=== PATIENT | female | born 1950 | race Caucasian/White ===

== ENCOUNTER 2016-09-08 11:15 | Day surgery (SDC) | payer BC ==
[2016-09-06 08:42] VITALS: BMI 26.6
[~2016-09-08 11:15] MED LIST: LACTATED RINGERS 1,000 ML IV SCH
[2016-09-08] MEDS ORDERED: LIDOCAINE 1% 20 ML VIAL (10MG/ML) FOR IV START SQ ONE (11:51)
[2016-09-08 11:57] VITALS: RESP 16; TEMP 97.1
[2016-09-08] MEDS ORDERED: PROPOFOL 10 MG/ML 20 ML VIAL IV ONE (12:35)
[2016-09-08] MEDS ORDERED: LIDOCAINE 1% INJ 10MG/ML (20 ML MDV) ONE (12:35)
[2016-09-08 13:04] VITALS: PULSE 52
--- NOTE | 2016-09-08 13:04 | P.PCN ---
Date of Procedure: 09/08/16 Procedure(s) Performed: Procedure: Total colonoscopy. Preoperative diagnosis: Screening for neoplasia. Postoperative diagnosis: Exam within normal limits. Preparation: HalfLytely prep. Sedation: Was provided by anesthesia. Brief clinical history: The patient is a 65-year-old female who is referred for this evaluation for nonspecific abdominal symptoms but mostly for screening for neoplasia with age being her risk factor. She had a prior exam more than 10 years ago. No family history of colon cancer. She has no bleeding or anemia. Procedure: With the patient on her left lateral decubitus position and after informed consent and adequate sedation, the perianal area was inspected and it did not show any fissures or fistulas. There were no masses felt on digital rectal examination. The Olympus CFQ 160L video colonoscope was then inserted in the rectum in the usual fashion and advanced to the cecum. The mucosa appeared healthy. No polyps or tumors were seen or any obvious diverticular disease or other pathology. I retroflexed endoscope in the rectum before the endoscope was withdrawn. The patient tolerated the procedure well. Plan: The patient was reassured. Discussed dietary measures. She will follow- up with you as planned and further plans can be made based on her course. I suggested repeat colonoscopy in 10 years.
[2016-09-08 13:22] VITALS: BP 132/76
== END 2016-09-08 13:34 | disposition home or self-care (01) ==
LOC: ORWHC2ENDO 11:15
DX: Z12.11 Encounter for screening for malignant neoplasm of colon (principal)
CPT/HCPCS: G0121; J2001; J2704; 45378; 99153

== ENCOUNTER → 2016-09-21 | Outpatient (CLI) | payer BC ==
--- NOTE | 2016-09-21 16:31 | BD ---
EXAMINATION TYPE: MG DEXA axial skeleton. DATE OF EXAM: 09/21/2016 8:53 AM COMPARISON: NONE CLINICAL HISTORY: 65-year-old female osteoporosis Height: 69 Weight: 190.9 FRAX RISK QUESTIONS: Alcohol (3 or more units per day): YES Family History (Parent hip fracture): NO Glucocorticoids (More than 3mos): NO (Ex: prednisone, prednisolone, methylprednisolone, dexamethasone, and hydrocortisone). History of Fracture in Adulthood: NO Secondary Osteoporosis: 1. Type 1 Diabetes: NO 2. Hyperthyroidism: NO 3. Menopause before 45: NO 4. Malnutrition: NO 5. Chronic liver disease: NO Rheumatoid Arthritis: NO Current Tobacco Use: NO RISK FACTORS HISTORY OF: Hip Fracture (Right/Left): NO Spine Fracture: NO History of Wrist Fracture: NO Surgery to Spine/Hip(right/left)/Wrist (right/left): NO Family History of Osteoporosis: NO Active: NO Diet low in dairy products/other sources of calcium: NO Postmenopausal woman: AGE 52 Lost more than 2 inches in height since high school: NO Frequent falls: NO Adrenal Insufficiency: NO MEDICATIONS: NONE EXAM MEASUREMENTS: Bone mineral densitometry was performed using the [employer] System. Bone mineral density as measured about the Lumbar spine is: ----- L1-L4(G/cm2): 1.002 T Score Values are as follows: ----- L2: -1.3 ----- L3: -1.0 ----- L4: -2.1 ----- L1-L4: -1.5 Bone mineral density has: DECREASED -9.7 % since study of: 07.09.2008 Bone mineral density about the R hip (g/cm2): 1.039 Bone mineral density about the L hip (g/cm2): 0.989 T Score values are as follows: -----R Neck: 0.0 -----L Neck: -0.4 -----R Intertrochanter: -0.2 -----L Intertrochanter: -0.7 Bone mineral density has: DECREASED -2.1 % since study of: 07.09.2008 IMPRESSION: Osteopenia as indicated by T score values in the lumbar spine. There is slightly increased risk for f racture and therapy can be considered. Rescreen in 2-5 years. NOTE: T-SCORE=SD OF THE YOUNG ADULT MEAN.
--- NOTE | 2016-09-22 12:00 | MM ---
Reason for exam: screening (asymptomatic). Last mammogram was performed 1 year and 3 months ago. History: Patient is postmenopausal. Family history of breast cancer in mother at age 68 and breast cancer in maternal aunt at age 60. Benign excisional biopsy of the left breast, 2004. Retro-pectoral silicone gel implants in both breasts, 1980. Benign excisional biopsy of the left breast, 1979. Took hormonal contraceptives for 8 years beginning at age 19. Physical Findings: A clinical breast exam by your physician is recommended on an annual basis and results should be correlated with mammographic findings. MG Screening Mammo Implant/CAD Bilateral CC, MLO, and ID view(s) were taken. Prior study comparison: June 09, 2015, bilateral MG screening mammo implant/CAD. May 14, 2013, CAD bilateral diagnostic mammogram. The breast tissue is heterogeneously dense. This may lower the sensitivity of mammography. There is no discrete abnormality. Implants are intact. No significant changes when compared with prior studies. ASSESSMENT: Negative, BI-RAD 1 RECOMMENDATION: Routine screening mammogram of both breasts in 1 year.
== END ==
LOC: RADMAMWWP 08:07
PROVIDERS: ATTEND Internal Medicine Geriatric Medicine
DX: Z12.31 Encounter for screening mammogram for malignant neoplasm of breast (principal); M85.88 Other specified disorders of bone density and structure, other site
CPT/HCPCS: 77080; G0202

== ENCOUNTER → 2019-09-12 | Outpatient (CLI) | payer MEDICARE, BC | END | disposition home or self-care (01) | LOC: LABWHC1 09:05 | PROVIDERS: ATTEND Orthopaedic Surgery | DX: M25.532 Pain in left wrist (principal); S52.552D Other extraarticular fracture of lower end of left radius, subsequent encounter for closed fracture with routine healing; Z48.89 Encounter for other specified surgical aftercare; E55.9 Vitamin D deficiency, unspecified | CPT/HCPCS: 36415; 82306 ==

== ENCOUNTER → 2020-12-16 | Outpatient (CLI) | payer MEDICARE, BC ==
--- NOTE | 2020-12-16 11:28 | BD ---
EXAMINATION TYPE: Axial Bone Density DATE OF EXAM: 12/16/2020 COMPARISON: 09.21.2016 CLINICAL HISTORY: 70 YR OLD FEMALE......ICD-10 CODE: M81.0 OSTEOPOROSIS Height: 68.5 Weight: 185 FRAX RISK QUESTIONS: History of Fracture in Adulthood: YES RISK FACTORS HISTORY OF: History of Wrist Fracture: LT WRIST WITH PINNING LAST YR, 2019 Diet low in dairy products/other sources of calcium: YES Postmenopausal woman: YES, AT AGE 52 Hyperparathyroidism: NO Adrenal Insufficiency: NO MEDICATIONS: Additional Medications: VIT D AND CALCIUM Additional History: NOTHING ADDITIONAL TO ADD HERE EXAM MEASUREMENTS: Bone mineral densitometry was performed using the [employer] System. Bone mineral density as measured about the Lumbar spine is: ----- L1-L4(G/cm2): 1.007 T Score Values are as follows: ----- L1: -1.4 ----- L2: -1.8 ----- L3: -0.4 ----- L4: -2.2 ----- L1-L4: -1.4 Bone mineral density has: Increased 0.5% since study of: 09.21.2016 Bone mineral density about the R hip (g/cm2): 1.027 Bone mineral density about the L hip (g/cm2): 0.971 T Score values are as follows: -----R Neck: 0.1 -----L Neck: -0.4 -----R Total: 0.1 -----L Total: -0.3 Bone mineral density has: Decreased -0.1% since study of: 09.21.2016 FRAX%S: THERE IS A 12.3% CHANCE FOR A MAJOR OSTEOPOROTIC FX AND A 0.7% FOR HIP......PROBABILITY FO R FX IN 10 YRS TIME IMPRESSION: Osteopenia (T Score between -2.5 and -1) remains present. There remains slightly increased risk of fracture and the patient may be considered for treatment. Re-Screen 2-5 years. NOTE: T-SCORE=SD OF THE YOUNG ADULT MEAN.
--- NOTE | 2020-12-17 10:26 | MM ---
Reason for exam: screening (asymptomatic). Last mammogram was performed 2 years and 6 months ago. History: Patient is postmenopausal and history of other cancer. Family history of breast cancer in mother at age 68 and breast cancer in maternal aunt at age 60. Benign excisional biopsy of the left breast, 2004. Retro-pectoral silicone gel implants in both breasts, 1980. Benign excisional biopsy of the left breast, 1979. Took hormonal contraceptives for 8 years beginning at age 19. Physical Findings: A clinical breast exam by your physician is recommended on an annual basis and results should be correlated with mammographic findings. MG 3D Screen Mammo Imp/Cad Bilateral CC, MLO, and ID view(s) were taken. Prior study comparison: June 20, 2018, bilateral MG screening mammo implant/CAD. September 21, 2016, bilateral MG screening mammo implant/CAD. The breast tissue is heterogeneously dense. This may lower the sensitivity of mammography. There is no discrete abnormality. Bilateral subpectoral implants partially imaged. ASSESSMENT: Benign, BI-RAD 2 RECOMMENDATION: Routine screening mammogram of both breasts in 1 year.
== END | disposition home or self-care (01) ==
LOC: RADMAMWWP 09:01
PROVIDERS: ATTEND Internal Medicine Geriatric Medicine
DX: Z12.31 Encounter for screening mammogram for malignant neoplasm of breast (principal); Z13.820 Encounter for screening for osteoporosis; M85.89 Other specified disorders of bone density and structure, multiple sites; Z78.0 Asymptomatic menopausal state; Z80.3 Family history of malignant neoplasm of breast
CPT/HCPCS: 77063; 77067; 77080

== ENCOUNTER → 2022-03-01 | Outpatient (CLI) | payer MEDICARE ==
--- NOTE | 2022-03-02 17:52 | MM ---
Reason for Exam: Screening (asymptomatic). Last mammogram was performed 1 year(s) and 3 month(s) ago. Patient History: Menarche at age 15. First Full-Term at age 23. Postmenopausal. Other cancer. Hormonal Contraceptives for 8 years from age 19 until age 27. 2004, Benign Excisional Biopsy on the left side. 1979, Benign Excisional Biopsy on the left side. 1980, Bilateral Implants. Maternal aunt had breast cancer, age 60. Maternal aunt had breast cancer at or over age 50. Mother had breast cancer, age 68. Risk Values: Patricia 5 year model risk: 4.9%. NCI Lifetime model risk: 14.5%. Prior Study Comparison: 09/21/2016 Bilateral Screening Mammogram, [facility]. 06/20/2018 Bilateral Screening Mammogram, [facility]. 12/16/2020 Bilateral Screening Mammogram, [facility]. Tissue Density: There are scattered fibroglandular densities. Findings: Analyzed By CAD. Bilateral breast prostheses are present. No suspicious groups of microcalcifications, spiculated or lobular masses, architectural distortion or other secondary signs of malignancy are mammographically apparent. Overall Assessment: Benign, BI-RAD 2 Management: Screening Mammogram of both breasts in 1 year. A negative mammogram report should not preclude additional follow up of suspicious palpable abnormalities. Patient should continue monthly self breast exam. A clinical breast exam by your physician is recommended on an annual basis and results should be correlated with mammographic findings. Electronically signed and approved by: Yobani Brown D.O. Radiologis
== END | disposition home or self-care (01) ==
LOC: RADMAMWWP 09:31
PROVIDERS: ATTEND Internal Medicine Geriatric Medicine
DX: Z12.31 Encounter for screening mammogram for malignant neoplasm of breast (principal); Z78.0 Asymptomatic menopausal state; Z80.3 Family history of malignant neoplasm of breast
CPT/HCPCS: 77063; 77067

== ENCOUNTER → 2023-08-02 | Outpatient (CLI) | payer MEDICARE ==
--- NOTE | 2023-08-04 15:46 | MM ---
Reason for Exam: Screening (asymptomatic). Last mammogram was performed 1 year(s) and 5 month(s) ago. Patient History: Menarche at age 15. First Full-Term at age 23. Postmenopausal. Patient has history of breast feeding. Other cancer. Hormonal Contraceptives for 8 years from age 19 until age 27. 2004, Benign Excisional Biopsy on the left side. 1979, Benign Excisional Biopsy on the left side. 1980, Bilateral Implants. Maternal aunt had breast cancer, age 60. Mother had breast cancer, age 68. Risk Values: Patricia 5 year model risk: 4.9%. NCI Lifetime model risk: 13.9%. Prior Study Comparison: 06/20/2018 Bilateral Screening Mammogram, [facility]. 12/16/2020 Bilateral Screening Mammogram, [facility]. 03/01/2022 Bilateral MG 3D screen mammo imp/cad., [facility]. Tissue Density: There are scattered fibroglandular densities. Findings: Analyzed By CAD. Pattern appears symmetrical stable. Retropectoral breast prostheses are present. No suspicious groups of microcalcifications, spiculated or lobular masses, architectural distortion or other secondary signs of malignancy are mammographically apparent. Overall Assessment: Negative, BI-RAD 1 Management: Screening Mammogram of both breasts in 1 year. A negative mammogram report should not preclude additional follow up of suspicious palpable abnormalities. Patient should continue monthly self breast exam. A clinical breast exam by your physician is recommended on an annual basis and results should be correlated with mammographic findings. Electronically signed and approved by: Yobani Brown D.O. Radiologis
== END | disposition home or self-care (01) ==
LOC: RADMAMWWP 09:26
PROVIDERS: ATTEND Internal Medicine Geriatric Medicine
DX: Z12.31 Encounter for screening mammogram for malignant neoplasm of breast (principal); Z80.3 Family history of malignant neoplasm of breast; Z78.0 Asymptomatic menopausal state
CPT/HCPCS: 77063; 77067

== ENCOUNTER → 2024-06-04 | Outpatient (CLI) | payer MEDICARE ==
[2024-06-04 14:12] VITALS: BP 125/72; PULSE 88; RESP 16; TEMP 97.7
--- NOTE | 2024-06-04 14:48 | P.SLEEP ---
History of Present Illness H&P Date: 06/04/24 This is a 73-year-old female patient who was referred to me for sleep apnea evaluation. The patient was having loud snoring and occasional arousals due to apnea. As she was discussing this with her primary care physician, she was advised to lose weight. She was started on Adipex and she has already lost around 20 to 25 pounds. She is feeling better. Her arousals have subsided. Her current Westland score is 11. Family members are still stating that she is snoring at nighttime. No reported choking or gasping for air in the middle of the night. No restlessness in lower extremities. No grinding of disease. No sleepwalking or sleep talking. No major fatigue or tiredness during the day. No issues with memory or concentration. She goes to bed around 10 PM and wakes up between 5 and 6 AM in the morning and she is able to go 6 to 7 hours of sleep. He sleeps on her side. She keeps the head of the bed elevated. She drinks 2 cups of coffee in the morning. She takes 1 nap occasionally during the day. Her has obstructive sleep apnea and the patient is very much aware of this disorder. No sleep paralysis. No hallucinations. No cataplexy. No other medical issues such as diabetes hypertension or hyperlipidemia or cardiovascular disease. No history of stroke. No history of atrial fibrillation. No restlessness in lower extremities. No nightmares. No smoking. No alcoholism. No substance abuse. Review of Systems Constitutional: Reports fatigue Eyes: denies as per HPI, denies blurred vision, denies bulging eye, denies decreased vision, denies diplopia, denies discharge, denies dry eye, denies irritation, denies itching, denies pain, denies photophobia, denies loss of peripheral vision, denies loss of vision, denies tunnel vision/blind spots Ears: deny: decreased hearing, ear discharge, earache, tinnitus Ears, nose, mouth and throat: Reports as per HPI Breasts: absent: as per HPI, change in shape, gynecomastia, masses, nipple discharge, pain, skin changes, swelling Cardiovascular: Reports as per HPI Respiratory: Reports snoring Gastrointestinal: Reports as per HPI Genitourinary: Reports as per HPI Menstruation: Reports as per HPI Musculoskeletal: Reports as per HPI Musculoskeletal: absent: ankle pain, ankle stiffness, ankle swelling, as per HPI, elbow pain, elbow stiffness, elbow swelling, foot pain, foot stiffness, foot swelling, hand pain, hand stiffness, hand swelling, hip pain, hip stiffness, hip swelling, knee pain, knee stiffness, knee swelling, shoulder pain, shoulder stiffness, shoulder swelling, wrist pain, wrist stiffness, wrist swelling Integumentary: Reports as per HPI Neurological: Reports as per HPI Psychiatric: Reports as per HPI Endocrine: Reports as per HPI Hematologic/Lymphatic: Reports as per HPI Allergic/Immunologic: Reports as per HPI Past Medical History Past Medical History: No Reported History Additional Past Medical History / Comment(s): Loud snoring, "Dr. Chahal put pt on Phentermine to try to help me get weight down. - taking X 3 months now" History of Any Multi-Drug Resistant Organisms: None Reported Past Surgical History: Orthopedic Surgery, Tonsillectomy, Tubal Ligation Additional Past Surgical History / Comment(s): breast bx, lump bx shoulder,breast augmentation, left lower arm fx Past Anesthesia/Blood Transfusion Reactions: No Reported Reaction Past Psychological History: No Psychological Hx Reported Smoking Status: Former smoker Past Alcohol Use History: Occasional Additional Past Alcohol Use History / Comment(s): quit smoking , smoked approx 10 yrs on and off social smoker Past Drug Use History: Marijuana Additional Drug Use History / Comment(s): In the 70's - Past Family History Mother Family Medical History: Cancer Additional Family Medical History / Comment(s): breast CA,heart problems - heart valve issue, Father Family Medical History: Cancer Additional Family Medical History / Comment(s): Pancreas, nasal polyps, neuropathy, a lot of heart tests, pain issues Medications and Allergies Home Medications Medication Instructions Recorded Confirmed Type Phentermine/Topiramate [Qsymia 1 cap PO QAM 06/04/24 06/04/24 History 3.75 mg-23 mg Capsule] Allergies Allergy/AdvReac Type Severity Reaction Status Date / Time No Known Allergies Allergy Verified 09/06/16 08:35 Physical Exam Vitals: Vital Signs Temp Pulse Resp BP Pulse Ox 06/04/24 14:06 97.7 F 88 16 125/72 97 Intake and Output 06/03/24 06/04/24 06/04/24 22:59 06:59 14:59 Other: Weight 80.399 kg The patient appeared well nourished and normally developed. Vital signs as documented. Head exam is unremarkable. No scleral icterus or corneal arcus noted. Neck is without jugular venous distension, thyromegaly, or carotid bruits. Carotid upstrokes are brisk bilaterally. The patient has a Mallampati class IV. The patient is an over bite Lungs are clear to auscultation and percussion. Cardiac exam reveals the PMI to be normally sized and situated. Rhythm is regular. First and second heart sounds normal. No murmurs, rubs or gallops. Abdominal exam reveals normal bowel sounds, no masses, no organomegaly and no aortic enlargement. Extremities are nonedematous and both femoral and pedal pulses are normal. Examination of the skin revealed no evidence of significant rashes, suspicious appearing nevi or other concerning lesions. Neurologically, the patient is awake and alert and the patient does not have any focal neurological deficit. Cranial nerves are essentially intact. Assessment and Plan Plan: Chronic snoring associated with some occasional nocturnal apneas which improved with weight loss. The patient has limited fatigue and sleepiness with an Westland score of 11. Her functionality is essentially preserved at this point in time. Mallampati class IV Overbite Weight loss while being on phentermine 37.5 mg and the patient's current body mass index is down to 26.3. Plan Clinically, the patient is stable and the patient has improved while losing weight and the patient has successfully lost around 25 pounds. Current body mass index is down to 26.3. She continues to snore and she is interested in knowing whether she has sleep apnea or not. Her current Westland score is 11. Based on all this, I suggested doing a home sleep study to evaluate the presence of sleep apnea and decide if treatment is needed. She does have a Mallampati class IV with crowding of the posterior pharynx and an overbite. Anatomically, she does have some features of obstructive sleep apnea. Clinically however, the patient is doing better with weight loss. Will do a baseline home sleep study and discussed the findings with the patient and treatment options. Maintain good sleep hygiene measures. Maintain regular sleep schedule. Encouraged f urther weight loss. Sleep on the side. Avoid alcohol drinking at least 3 hours prior to going to bed. Will continue to follow. Sleep Note - Sleep Data ESS Total: 11 - Sleep Note Sleep Note: Temperature: 97.7 F Pulse Rate: 88 Respiratory Rate: 16 Blood Pressure: 125/72 SpO2: 97 Height: 5 ft 8.7 in Weight: 80.399 kg BMI: Neck Circumference: 15
== END ==
LOC: 3 N SLEEP 13:41
PROVIDERS: ATTEND Internal Medicine Critical Care Medicine
DX: R06.83 Snoring (principal); G47.39 Other sleep apnea; R53.83 Other fatigue; G47.10 Hypersomnia, unspecified; M26.29 Other anomalies of dental arch relationship; R63.4 Abnormal weight loss; Z68.26 Body mass index [BMI] 26.0-26.9, adult; Z87.891 Personal history of nicotine dependence
CPT/HCPCS: 99211

== ENCOUNTER → 2024-07-04 | Outpatient (CLI) | payer MEDICARE | LOC: 3 N SLEEP 13:10 | PROVIDERS: ATTEND Internal Medicine Critical Care Medicine | DX: G47.33 Obstructive sleep apnea (adult) (pediatric) (principal); G47.10 Hypersomnia, unspecified; Z87.891 Personal history of nicotine dependence ==

== ENCOUNTER → 2024-08-02 | Outpatient (CLI) | payer MEDICARE ==
--- NOTE | 2024-08-02 17:34 | CA ---
Transthoracic Echo Report Name: Nisa Lechuga Age: 73 Gender: F : 1950 Exam Date: 08/02/2024 13:52 Exam Location: [place] [facility] Ht (in): 69 Wt (lb): 176 Ordering Physician: Kenneth Chahal MD Attending/Referring Phys: Assistant Community Manager Deisy Amaro RDCS Procedure CPT: Indications: I34.0 NONRHEUMATIC MITRAL (VALVE) INSUFFICIENCY Cardiac Hx: Technical Quality: Fair Contrast 1: Total Dose (mL): Contrast 2: Total Dose (mL): MEASUREMENTS (Male / Female) Normal Values 2D ECHO LV Diastolic Diameter PLAX 4.3 cm 4.2 - 5.9 / 3.9 - 5.3 cm LV Systolic Diameter PLAX 2.7 cm IVS Diastolic Thickness 1.1 cm 0.6 - 1.0 / 0.6 - 0.9 cm LVPW Diastolic Thickness 0.9 cm 0.6 - 1.0 / 0.6 - 0.9 cm LV Relative Wall Thickness 0.5 LVOT Diameter 1.4 cm LV Diastolic Volume MOD BP 92.7 cm??? 67 - 155 / 56 - 104 cm??? LV Systolic Volume MOD BP 26.6 cm??? 22 - 58 / 19 - 49 cm??? LV Ejection Fraction MOD BP 71.3 % >= 55 % LV Cardiac Index MOD BP 1865.6 cm???/min???m??? LV Diastolic Volume MOD 4C 100.4 cm??? LV Systolic Volume MOD 4C 31.8 cm??? LV Ejection Fraction MOD 4C 68.4 % LV Cardiac Index MOD 4C 1938.6 cm???/min???m??? LV Diastolic Length 4C 7.6 cm LV Systolic Length 4C 5.8 cm LV Diastolic Volume MOD 2C 80.4 cm??? LV Systolic Volume MOD 2C 22.0 cm??? LV Ejection Fraction MOD 2C 72.7 % LV Cardiac Index MOD 2C 1650.6 cm???/min???m??? LV Diastolic Length 2C 8.1 cm LV Systolic Length 2C 5.7 cm LA Volume 37.0 cm??? 18 - 58 / 22 - 52 cm??? LA Volume Index 18.6 cm???/m??? 16 - 28 cm???/m??? DOPPLER AV Peak Velocity 114.1 cm/s AV Peak Gradient 5.2 mmHg AV Mean Velocity 79.7 cm/s AV Mean Gradient 2.9 mmHg AV Velocity Time Integral 22.1 cm LVOT Peak Velocity 101.9 cm/s LVOT Peak Gradient 4.2 mmHg LVOT Velocity Time Integral 23.6 cm LVOT Stroke Volume 38.1 cm??? LVOT Stroke Volume Index 19.5 ml/m??? LVOT Cardiac Index 1076.8 cm???/min???m??? AV Area Cont Eq vti 1.7 cm??? AV Area Cont Eq pk 1.4 cm??? MV Area PHT 2.9 cm??? Mitral E Point Velocity 55.3 cm/s Mitral A Point Velocity 70.5 cm/s Mitral E to A Ratio 0.8 MV Deceleration Time 259.7 ms MV E' Velocity 4.4 cm/s Mitral E to MV E' Ratio 12.6 TR Peak Velocity 228.9 cm/s TR Peak Gradient 21.0 mmHg Right Ventricular Systolic Press 26.0 mmHg FINDINGS Left Ventricle Normal Left ventricular size, wall thickness, systolic function with no obvious regional wall motion abnormalities. Normal Left ventricular diastolic filling pattern. Left ventricular ejection fraction is estimated at 55-60 %. Right Ventricle Normal right ventricular size and function. Right ventricular systolic pressure within normal limits. Right Atrium Normal right atrial size. Left Atrium Normal left atrial size. Mitral Valve Structurally normal mitral valve. Mild mitral annular calcification. Trace to mild mitral regurgitation. Aortic Valve Trileaflet aortic valve. Mild aortic regurgitation. Tricuspid Valve Structurally normal tricuspid valve. Mild tricuspid regurgitation. Pulmonic Valve Structurally normal pulmonic valve. Pericardium No pericardial effusion. Aorta Normal size aortic root and proximal ascending aorta. CONCLUSIONS LVEF 55% No obvious regional wall motion abnormality Normal RV size and systolic function No significant chamber size abnormality Mild aortic regurgitation, mild tricuspid regurgitation. Previewed by: Dr Doc Borja (Electronically Signed) Final Date: 02 August 2024 17:33
== END | disposition home or self-care (01) ==
LOC: RADECHMAIN 13:36
PROVIDERS: ATTEND Internal Medicine Geriatric Medicine
DX: I08.3 Combined rheumatic disorders of mitral, aortic and tricuspid valves (principal)
CPT/HCPCS: 93306

== ENCOUNTER → 2024-08-05 | Outpatient (CLI) | payer MEDICARE ==
--- NOTE | 2024-08-05 15:51 | MM ---
Reason for Exam: Screening (asymptomatic). Last screening mammogram was performed 12 month(s) ago. Patient History: Menarche at age 15. First Full-Term at age 23. Postmenopausal. Patient has history of breast feeding. Hormonal Contraceptives for 8 years from age 19 until age 27. 2004, Benign Excisional Biopsy on the left side. 1979, Benign Excisional Biopsy on the left side. 1980, Bilateral Implants. Maternal aunt had breast cancer, age 60. Mother had breast cancer, age 68. Risk Values: Patricia 5 year model risk: 5.0%. NCI Lifetime model risk: 13.3%. Prior Study Comparison: 12/16/2020 Bilateral Screening Mammogram, [facility]. 03/01/2022 Bilateral MG 3D screen mammo imp/cad., [facility]. 08/02/2023 Bilateral MG 3D screen mammo imp/cad., [facility]. Tissue Density: There are scattered areas of fibroglandular density. Analyzed By CAD. Overall Assessment: Benign, BI-RAD 2 Management: Screening Mammogram of both breasts in 1 year. Electronically signed and approved by: Tyrone Sánchez M.D.
== END | disposition home or self-care (01) ==
LOC: RADMAMWWP 13:51
PROVIDERS: ATTEND Internal Medicine Geriatric Medicine
DX: Z12.31 Encounter for screening mammogram for malignant neoplasm of breast (principal); M81.0 Age-related osteoporosis without current pathological fracture; Z78.0 Asymptomatic menopausal state; R92.323 Mammographic fibroglandular density, bilateral breasts; Z80.3 Family history of malignant neoplasm of breast; Z98.82 Breast implant status
CPT/HCPCS: 77063; 77067